=== PATIENT | female | born 1990 | race Caucasian/White ===

== ENCOUNTER 2018-12-25 19:39 | Emergency (ER) | payer SELFPAY ==
[~2018-12-25] VITALS: Ht 165.1 cm; Wt 81.8 kg
[2018-12-25 19:47] VITALS: BP 119/82
== END 2018-12-25 21:10 | disposition left against medical advice (07) ==
LOC: EMS 19:43
DX: R51 Headache (principal); Z53.21 Procedure and treatment not carried out due to patient leaving prior to being seen by health care provider